=== PATIENT | female | born 1985 | race Hispanic/Latino ===

== ENCOUNTER 2018-01-21 22:07 | Inpatient (IN) | payer BC ==
[2018-01-21 22:42] VITALS: BMI 27.1
[2018-01-21 23:11] LABS: BASO % 0.3 % (0.0-2.0); EOS # 0.1 K/uL (0.0-0.7); EOS % 0.5 % (0.0-4.0); HEMOGLOBIN 11.1 g/dL (12.0-16.0); LYMPH # 2.8 K/uL (1.0-4.3); MEAN CELL VOLUME 89.7 fl (81.0-99.0); MEAN CORPUSCULAR HEMOGLOBIN 29.6 pg (27.0-31.0); MEAN PLATELET VOLUME 8.1 fl (7.2-11.7); MONO # 0.8 K/uL (0.0-0.8); NEUT # 9.6 K/uL (1.8-7.0); NEUT % 72.2 % (50.0-75.0); NRBC % 0.1 % (0.0-0.0); RBC 3.74 Mil/uL (3.80-5.20); RED CELL DISTRIBUTION WIDTH 13.9 % (11.5-14.5); WHITE BLOOD COUNT 13.3 K/uL (4.8-10.8)
[2018-01-22] MEDS ORDERED: Nalbuphine 20 mg/ml Inj (1 ml) IVP PRN (05:12)
--- NOTE | 2018-01-22 05:24 | OBADHP ---
Datetime: 01/22/2018 00:12 FHR - Baseline A Provider: 150 Membranes, Provider: Intact Vital Signs Provider: Reviewed; Within Normal Limits NICHD Variability Prov Fetus A: Moderate 6-25bpm NICHD Accel Fetus A IP Provider: 15X15 FHR Category Provider Fetus A: Category I Dilatation, Provider: FT Datetime: 01/21/2018 23:56 IP Chief Complaint Other: Oligohydramnios Admit Comment, IP Provider: CC: IOL for oligohydramnios HPI: 32 YO @ 40.5wks IUP presents to L_D for scheduled IOL for oligo. Pt states that she had an u/s done this morning and was told to come in for IOL for oligo. Endoring good FM, no LOF, VB and no ctx. MD: Jude cahrt rev'd PMH: denies SurgH: denies SH: denies ETOH, smoking and illict drug use FH: denies Allergies: NKDA Meds: PNV PE GEN: NAD Cardio: S1S2 no M/G/R Resp: clear breath sounds b/l Abdomen: BS+, NT gravid Neuro: AAO x 3 Ext: no edema, NT Cervx: FT FM: 150, catagory I, occasional ctx A/P: 32 YO @ 40.5wks IUP is admitted for IOL for oligohydramnios. HIV neg, RPR neg, GBS neg. -admit pt for vaginal del -start IOL protocol -cervidil -hep lock -blood work -continue FM Case discussed with Dr. Anais Santoyo, PGY I OB hospitalist note...patient seen with pgy1 and agree with her note. Cervidil inserted MAHNDO -disucussion about IOL, medical condition, labor, delivery, pain management, medications, risks/co mplications. Her questoins answered. Pelvic Type - PN: Adequate Extremities - PN: Normal Abdomen - PN: Normal Back - PN: Normal Breast - PN: Not Done Lungs - PN: Normal Heart - PN: Normal Thyroid - PN: Not Done Neurologic - PN: Normal General - PN: Normal Contraction Comments Provider: occ Pool Provider: Negative IP Hx Assessment: The History has been Reviewed and is Current IP Chief Complaint: Scheduled induction of labor Genitourinary Exam: Normal DTRs - PN: Not Done IP Adm Impression: Postterm, intrauterine ; No Active Labor; Intact Membranes IP Admit Plan: Admit to unit; Initiate labor protocol; Initiate labor induction protocol
[2018-01-22] MEDS ORDERED: Oxytocin 30 units/LR 500ML 30 U/500 ML BAG IV ONE ×2 (08:44→19:56)
[2018-01-22] MEDS: Lactated Ringer's 1,000 ML IV SCH ×4 (11:30→20:42)
--- NOTE | 2018-01-22 11:52 | OBPN ---
Datetime: 01/22/2018 11:46 IP Progress Impression: Normal progression of labor IP Progress Plan: Augmentation Membranes, Provider: Intact Contraction Comments Provider: Q2 FHR - Baseline A Provider: 130's IP Progress Note Comment: 32 G1 at 40 wks for induction of labor for oligohydramnios, s/p cervidil, now on pitocin Continue current care NICHD Accel Fetus A IP Provider: 15X15 FHR Category Provider Fetus A: Category I NICHD Variability Prov Fetus A: Moderate 6-25bpm Dilatation, Provider: 1 Effacement, Provider: 90 Station, Provider: -1 NICHD Decel Fetus A IP Provider: None Datetime: 01/22/2018 00:12 IP Procedures Other: Cervidil insertion IP Informed Consent Obtain: Vaginal Delivery Vital Signs Provider: Reviewed; Within Normal Limits Datetime: 01/21/2018 23:56 Pool Provider: Negative
[2018-01-22] MEDS ORDERED: Fentanyl/Bupivacaine HCl 250 ML EPI ONE (12:17)
[2018-01-23] MEDS: Lactated Ringer's 1,000 ML IV SCH ×3 (03:00→16:45)
[2018-01-23] MEDS ORDERED: ceFAZolin 1 GM in Sodium Chloride 0.9% 100 ML IVPB ONE (05:15)
[2018-01-23] MEDS ORDERED: ceFAZolin IV 1 gm in Dextrose 1 GM/50 ML BAG IVPB ONE (05:30)
[2018-01-23] MEDS ORDERED: Lidocaine 2% PF (10 ml) Amp ONE (05:39)
[2018-01-23] MEDS ORDERED: Morphine 1 mg/ml preservative-free Inj(Duramorph) ONE (05:40)
[2018-01-23] MEDS ORDERED: Bupivacaine HCl 0.5% PF (30 ml) Inj ONE (05:40)
[2018-01-23] MEDS ORDERED: Succinylcholine 200 mg/10 ml Inj IV ONE (06:06)
[2018-01-23] MEDS ORDERED: Propofol 10 mg/ml Inj (20 ML) ONE (06:06)
[2018-01-23] MEDS ORDERED: Midazolam 2 MG/2 ML VIAL ONE (07:18)
[2018-01-23] MEDS ORDERED: Cellulose Hemostat 2X3 Sheet ONE (07:23)
[2018-01-23] MEDS ORDERED: Oxycodone/Acetaminophen 5/325 mg Tab PO PRN ×2 (08:07)
[2018-01-23] MEDS ORDERED: DiphenhydrAMINE 50 mg/ml Inj IVP PRN (08:26)
--- NOTE | 2018-01-23 10:14 | OBPN ---
Datetime: 01/23/2018 08:17 IP Progress Impression: Arrest of dilatation/descent IP Informed Consent Obtain: Section Delivery; Risks, Benefits and Alternatives Discussed IP Procedures: Sterile Vag Exam IP Progress Plan: Deliver- Section Membranes, Provider: Ruptured Contraction Comments Provider: q2-5 FHR - Baseline A Provider: 160's IP Progress Note Comment: 32 yo G1 at 40 wks for induction of labor for oligohydramnios, w/ arrest o f desent Dx discussed w/ pt and her and 5 am Consents for ceasrean section and possible blood obtained. All questions answered. NICHD Variability Prov Fetus A: Moderate 6-25bpm Dilatation, Provider: 10 Effacement, Provider: 100 Station, Provider: 0 NICHD Decel Fetus A IP Provider: None
[2018-01-23 10:19] LABS: HEMOGLOBIN 8.9 g/dL (12.0-16.0); MEAN CELL VOLUME 90.7 fl (81.0-99.0); MEAN CORPUSCULAR HEMOGLOBIN 29.4 pg (27.0-31.0); MEAN CORPUSCULAR HGB CONC 32.5 g/dL (33.0-37.0); RBC 3.04 Mil/uL (3.80-5.20); RED CELL DISTRIBUTION WIDTH 14.2 % (11.5-14.5)
--- NOTE | 2018-01-23 11:09 | OBDS ---
DELIVERY PERSONNEL Delivery Doctor: Jeanette Denney MD Edge Runner: Veena Frost RN Anesthesiologist: Elaine Miller MD Resident: Dr Santoyo MATERNAL INFORMATION Delivery Anesthesia: Epidural Medications in Delivery: cefazolin 1 gram/ pit 30/500 pit Estimated Blood Loss (ml): 1000 Placenta Cultured: No Maternal Complications: Other Other Maternal Complications: Pt presented Tachy FHR and non reassuring strip with [id number] Descent . No maternal Fever noted and MD aware. Pt pushed from 240pm-5am. Provider Comments: Pre-op dx: 32 yo G1 at 41 wks for induction for oligohydramnios, w/ arrest of darlyn cent Post-op dx: Same Procedure: Primary low transverse section Surgeon: Олег Assistants: Drs. Wasserman and Deb Santoyo, PGY-1 Anesthesologist: Dr. Miller Anesthesia: Epidural Findings: Viable male delivered through thick meconium-stained fluid at 06:19am. Apgars 9 and 9. Wt 2950gms, 6#8. Nl appearing uterus tubes and ovaries. EBL: 1 liter LABOR SUMMARY EDC: 01/16/2018 00:00 No. Babies in Womb: 1 Attempted: No Labor Anesthesia: Epidural LABOR INFORMATION Reason for Induction: Oligohydramnios Onset of Labor: 01/22/2018 18:30 Complete Dilatation: 01/23/2018 00:30 Cervical Ripening Agents: Cervidil Oxytocin: Induction Group B Beta Strep: Negative Antibiotics # of Doses: 1 Antibiotics Time of Last Dose: Ancef 1 gm @0555 Steroids Given: None Reason Steroids Not Administered: Not Applicable Other Reason Not Administered: n/a MEMBRANES Membranes Rupture Method: Artificial Rupture of Membranes: 01/23/2018 06:19 Length of Rupture (hrs): 0.00 Amniotic Fluid Color: Heavy Meconium Amniotic Fluid Amount: Small Amniotic Fluid Odor: Normal STAGES OF LABOR Stage 1 hrs: 6 Stage 1 min: 0 Stage 2 hrs: 5 Stage 2 min: 49 Stage 3 hrs: 0 Stage 3 min: 1 Total Time in Labor hrs: 11 Total Time in Labor min: 50 CSECTION DELIVERY Primary Indication: Arrest of Descent CSection Urgency: Elective CSection Incidence: Primary Labor: Labor Elective: Elective CSection Incision: Lower Uterine Transverse BABY A INFORMATION Delivery Date/Time: 01/23/2018 06:19 Method of Delivery: Born in Route : No : N/A Forceps: N/A Vacuum Extraction: N/A Shoulder Dystocia : No ASSISTED DELIVERY BABY A Station Vacuum/Forcep Apply: SHOULDER DYSTOCIA BABY A Infant Delivery Date/Time: 01/23/2018 06:19 PRESENTATION/POSITION BABY A Presentation: Cephalic Cephalic Presentation: Vertex Breech Presentation: N/A (Annotations: Data stored by [facility] on behalf of user) PLACENTA INFORMATION BABY A Placenta Delivery Time : 01/23/2018 06:20 Placenta Method of Delivery: Expressed Placenta Status: Delivered SCORES BABY A Heart Rate 1 min: >100 bpm Resp Effort 1 min: Good Cry Reflex Irritability 1 min: Cough or Sneeze or Pulls Away Muscle Tone 1 min: Active Motion Color 1 min: Body Parnell, Extremities Blue Resuscitation Effort 1 min: N/A SCORE 1 MIN: 9 Heart Rate 5 min: >100 bpm Resp Effort 5 min: Good Cry Reflex Irritability 5 min: Cough or Sneeze or Pulls Away Muscle Tone 5 min: Active Motion Color 5 min: Body Parnell, Extremities Blue Resuscitation Effort 5 min: N/A SCORE 5 MIN: 9 INFORMATION BABY A Gestational Age at Delivery: 40.6 Gestational Status: Term Infant Outcome : Liveborn Condition : Stable Sex: Male IDENTIFICATION/MEDS BABY A ID Band Number: [id number] ID Band Location: Left Leg; Left Arm Vitamin K Given : Aquamephyton 0.5 mg IM Erythromycin Given: Given Both Eyes WEIGHT/LENGTH BABY A Birthweight (gms): 2950 Infant Weight (lb): 6 Weight (oz): 8 Infant Length Inches: 19.50 Length cms: 49.5 CORD INFORMATION BABY A No. Cord Vessels: 3 Nuchal Cord : Around Neck x1, Loose Nuchal Cord Other: n/a True Knot: n/a Cord pH Baby Arterial: n/a Cord pH Baby Venous: n/a Cord Blood Taken: Yes Banking/Donate Info: n/a Infant Suction: Mouth; Nose ASSESSMENT BABY A Complications: Extended Tachycardia; Multiple Late Decels; Multiple Variable Decels; Ol igohydramnios Physical Findings at Delivery: Within Normal Limits Infant Respirations: Appears Normal Paradichlorobenzene Machine Operator/ALS Called : No Infant Care By: DR Morse/Annika/Magalie Transferred To: Remains with Mother
[2018-01-23 14:27] LABS: HEMOGLOBIN 7.9 g/dL (12.0-16.0); MEAN CELL VOLUME 90.5 fl (81.0-99.0); MEAN CORPUSCULAR HEMOGLOBIN 29.4 pg (27.0-31.0); MEAN CORPUSCULAR HGB CONC 32.4 g/dL (33.0-37.0); RBC 2.68 Mil/uL (3.80-5.20); RED CELL DISTRIBUTION WIDTH 14.3 % (11.5-14.5)
--- NOTE | 2018-01-23 14:42 | OP ---
PROCEDURE DATE: 01/23/2018 PREOPERATIVE DIAGNOSES: This is a 32-year-old G1 at 41 weeks for induction for oligohydramnios with arrest of descent. POSTOPERATIVE DIAGNOSES: This is a 32-year-old G1 at 41 weeks for induction for oligohydramnios with arrest of descent. PROCEDURE: Primary low transverse section. SURGEON: Alcon Denney MD ASSISTANTS: Drs. Kamaljit Wasserman and Deb Santoyo, PGY-1 TYPE OF ANESTHESIA: Epidural. ANESTHESIA ADMINISTERED BY: Dr. Miller. FINDINGS: Viable male delivered through thick meconium-stained fluid at 6:19 a.m. Apgars 9 and 9 at 1 and 5 minutes respectively. The weight is 2950 grams or 6 pounds 8 ounces. Normal-appearing uterus, tubes and ovaries. Baby was SGA. Urine was clear prior to the case and was blood-tinged by the end of the case. ESTIMATED BLOOD LOSS: 1 liter. DESCRIPTION OF PROCEDURE: The patient was taken to the operating room where the epidural was bolused. She was prepped and draped in the normal sterile fashion in dorsal supine position with a leftward tilt. A Bailey was placed in the bladder. A time-out was done. A Pfannenstiel skin incision was made with a scalpel and carried through to the underlying layer of fascia with the Bovie. The fascia was incised in the midline and the incision was extended laterally with the Henry scissors. The inferior aspect of the fascial incision was then grasped with the Maninder clamps, elevated, and the underlying rectus muscles were dissected off bluntly and with the Bovie. Attention was then turned to the superior aspect of this incision, which in a similar fashion, was grasped, tented up with the Maninder clamps, and the rectus muscles dissected off bluntly. The rectus muscles were then in the midline, and the peritoneum was identified, tented up, and entered sharply with the Metzenbaum scissors. The peritoneal incision was then extended superiorly and inferiorly with good visualization of the bladder. The bladder blade was then inserted and the vesicouterine peritoneum was identified, grasped with the pickups, and entered sharply with the Metzenbaum scissors. This incision was then extended laterally and the bladder flap was created digitally. The bladder blade was then reinserted and the lower uterine segment was incised in transverse fashion with the scalpel. The uterine incision was then extended in a cephalocaudal direction digitally. The bladder blade was removed. The right rectus muscle was incised with bandage scissors to make room for the delivery. The infant's head delivered atraumatically. The nose and mouth were suctioned with the bulb suction. The cord was clamped and cut. The infant was handed off to the awaiting scene and lighting design lecturer. Cord gases were collected. Cord blood was collected. The placenta was then delivered as the uterus was massaged. The uterus was then exteriorized and cleared of all clots and debris. The uterine incision was then repaired with 0 Vicryl in a running locked fashion. The inferior portion of the incision was extremely friable and was oozing. Three moistened laparotomy sponges were placed over the incision and it was decided to call Dr. Wasserman for assistance. Dr. Wasserman arrived about a half hour later. The sponges did not appear to be soaking with blood. There was also a large hematoma that occupied a large portion of the lower uterine segment. The hematoma remained stable and did not appear to be expanding. When Dr. Wasserman arrived, the sponges were removed from the area and the friable lower aspect of the incision was bleeding. The thicker portion of the inferior aspect of the uterine incision was now clearly visible and so this was incorporated into the incision with 0 Vicryl in a running locked fashion. The abdomen was well irrigated. The uterus was placed back in the abdomen. The gutters were cleared of all clots. The superior aspect of the right side of the peritoneum was sutured with 1-chromic for hemostasis. The rectus muscle was then re-approximated with interrupted stitches of 1 chromic. The fascia was then reapproximated with 0 Vicryl in a running fashion. The subcutaneous fat was well irrigated. The subcutaneous fat was closed with interrupted stitches of 2-0 plain gut. The skin was then closed in subcuticular fashion using 4-0 Monocryl. The patient tolerated the procedure well. Sponge, lap and needle counts were correct. The patient had received 1 g of Ancef prior to the procedure. The patient was taken to the recovery room in stable condition. Alcon Denney MD [facility] # [id number] DARRON
[2018-01-23 20:46] LABS: BASO % 0.1 % (0.0-2.0); EOS % 0.1 % (0.0-4.0); HEMOGLOBIN 6.9 g/dL (12.0-16.0); LYMPH # 1.6 K/uL (1.0-4.3); LYMPH % 7.3 % (20.0-40.0); MEAN CELL VOLUME 90.9 fl (81.0-99.0); MEAN CORPUSCULAR HEMOGLOBIN 29.3 pg (27.0-31.0); MEAN CORPUSCULAR HGB CONC 32.2 g/dL (33.0-37.0); MEAN PLATELET VOLUME 7.7 fl (7.2-11.7); MONO # 1.1 K/uL (0.0-0.8); MONO % 4.7 % (0.0-10.0); NEUT # 19.7 K/uL (1.8-7.0); NEUT % 87.8 % (50.0-75.0); PLATELET COUNT 138 K/uL (130-400); RBC 2.36 Mil/uL (3.80-5.20); RED CELL DISTRIBUTION WIDTH 14.4 % (11.5-14.5); WHITE BLOOD COUNT 22.4 K/uL (4.8-10.8)
[2018-01-23 21:39] LABS: BANDS 1 % (0-2); EOSINOPHIL 1 % (0-7); LYMPHOCYTE 8 % (20-50); MONOCYTE 2 % (0-10); NEUTROPHIL 88 % (42-75); TOTAL CELLS COUNTED 100
[2018-01-23 21:40] LABS: HYPOCHROMIC MARKED; ROULEAUX FORMATION SLIGHT
[2018-01-23 21:51] LABS: PLATELET ESTIMATE NORMAL (NORMAL)
[2018-01-23] MEDS: Simethicone 80 mg Chewtab PO SCH (21:57)
--- NOTE | 2018-01-24 01:21 | OBPPN ---
Datetime: 01/24/2018 01:01 PP Pain Prov: Within normal limits PP Nausea Prov: Denies PP Breasts Prov: Normal PP Heart Prov: Normal PP Lungs Prov: Normal PP Abdomen/Uterus Prov: Normal PP Lochia Prov: Normal PP Vulva/Perineum Prov: Normal PP CVA Tenderness Prov: Normal PP Extremities Prov: Normal PP Comments Phys Exam Prov: Uterus firm, below umbilicus Abdomen soft, nondistended, appropriate diffuse tenderness PP Plan Prov: Continue present management PP Impression Other Prov: acute anemia PP Progress Note Prov: Patient with persistent tachycardia. Latest CBC drawn reported hematocrit of 21. Discussed with patient the need for transfusion. All patient questions answered and patient agree s with plan. 2 units packed red blood cells ordered. IP PP Procedures: Transfusion Vital Signs Provider PP: Reviewed Vital Signs Provider Details PP: Tachycardia
[2018-01-24] MEDS: Simethicone 80 mg Chewtab PO SCH ×3 (10:00→22:07)
[2018-01-24] MEDS ORDERED: DiphenhydrAMINE 50 mg/ml Inj IVP PRN (14:56)
[2018-01-24] MEDS ORDERED: Oxycodone/Acetaminophen 5/325 mg Tab PO PRN ×2 (14:56)
[2018-01-24] MEDS: Prenatal Multivit/Folic Acid/Iron Tab PO SCH (16:38)
[2018-01-24 18:01] LABS: BASO % 0.2 % (0.0-2.0); EOS # 0.1 K/uL (0.0-0.7); EOS % 0.4 % (0.0-4.0); HEMOGLOBIN 9.1 g/dL (12.0-16.0); LYMPH # 1.9 K/uL (1.0-4.3); LYMPH % 8.9 % (20.0-40.0); MEAN CELL VOLUME 88.6 fl (81.0-99.0); MEAN CORPUSCULAR HGB CONC 32.7 g/dL (33.0-37.0); MEAN PLATELET VOLUME 7.8 fl (7.2-11.7); MONO % 4.6 % (0.0-10.0); NEUT # 18.1 K/uL (1.8-7.0); NEUT % 85.9 % (50.0-75.0); RBC 3.13 Mil/uL (3.80-5.20); RED CELL DISTRIBUTION WIDTH 15.6 % (11.5-14.5); WHITE BLOOD COUNT 21.1 K/uL (4.8-10.8)
--- NOTE | 2018-01-24 18:57 | OBPPN ---
Datetime: 01/24/2018 18:43 PP Pain Prov: Within normal limits PP Nausea Prov: Denies PP Flatus Prov: Yes PP Breasts Prov: Normal PP Heart Prov: Normal PP Lungs Prov: Normal PP Abdomen/Uterus Prov: Normal PP Lochia Prov: Normal PP Vulva/Perineum Prov: Normal PP CVA Tenderness Prov: Normal PP Extremities Prov: Normal PP Comments Phys Exam Prov: Incisoin clean/dry/ Intact Fundus firm under umbilicus PP Impression Prov: Normal progression PP Plan Prov: Continue present management PP Progress Note Prov: Patient denies CP, no SOB, no N/V, tolerating PO diet, ambulating/voiding wel l, mild lochia, abdominal pain tolerable with meds, +flatus A/P POD #2 1. Reg diet 2. Percocet/Motrin prn pain 3. Encourage ambulation/ IP PP Procedures: None Vital Signs Provider PP: Reviewed; Within Normal Limits
[2018-01-25] MEDS: Simethicone 80 mg Chewtab PO SCH ×4 (05:49→22:05)
--- NOTE | 2018-01-25 08:06 | OBPPN ---
Datetime: 01/25/2018 07:57 PP Pain Prov: Within normal limits PP Nausea Prov: Denies PP Flatus Prov: Yes PP BM Prov: No PP Abdomen/Uterus Prov: Normal PP Lochia Prov: Normal PP Vulva/Perineum Prov: Normal PP Extremities Prov: Normal PP C/S Incision Prov: Normal PP Progress Prov: Normal PP Comments Phys Exam Prov: Incison intact w/ steri strips PP Impression Prov: Normal progression PP Progress Note Prov: POD 2 s/p primary c/s for arrest of descent, breast feeding Pt reports that she is leaking urine when she has to urinate, denies leaking w/ walking Discussed Kegel exercise Will observe for now Vital Signs Provider PP: Reviewed
[2018-01-25] MEDS: Prenatal Multivit/Folic Acid/Iron Tab PO SCH (09:47)
[2018-01-25] MEDS ORDERED: Lansinoh for Breast Feeding Mothers TP ONE (22:11)
[2018-01-26] MEDS: Simethicone 80 mg Chewtab PO SCH ×4 (05:42→21:18)
[2018-01-26] MEDS: Prenatal Multivit/Folic Acid/Iron Tab PO SCH (09:48)
--- NOTE | 2018-01-26 10:28 | OBPPN ---
Datetime: 01/26/2018 10:24 PP Pain Prov: Within normal limits PP Nausea Prov: Denies PP Flatus Prov: Yes PP Breasts Prov: Normal PP Heart Prov: Normal PP Lungs Prov: Normal PP Abdomen/Uterus Prov: Normal PP Lochia Prov: Normal PP Vulva/Perineum Prov: Normal PP CVA Tenderness Prov: Normal PP Extremities Prov: Normal PP Comments Phys Exam Prov: Fundus firm under umbilicus Incision clean/dry/intact PP Impression Prov: Normal progression PP Plan Prov: Continue present management PP Progress Note Prov: Patient denies CP, no SOB, no N/V, tolerating PO diet, ambulating/voiding wel l, mild lochia, abdominal pain tolerable with meds, +flatus, +BM A/P POD #3 1. Reg diet 2. Percocet/Motrin prn pain 3. Encourage ambulation/ IP PP Procedures: None Vital Signs Provider PP: Reviewed; Within Normal Limits
[2018-01-26] MEDS ORDERED: Lansinoh for Breast Feeding Mothers TP ONE (12:47)
[2018-01-27] MEDS: Simethicone 80 mg Chewtab PO SCH ×3 (06:53→17:03)
[2018-01-27] MEDS: Prenatal Multivit/Folic Acid/Iron Tab PO SCH (08:57)
--- NOTE | 2018-01-27 10:31 | OBDCSUM ---
Datetime: 01/27/2018 10:27 Discharged to, Provider: Home Follow up at, Provider: anastasia Disch Instr Activity: May Shower Disch Instr Diet: Regular Discharge Instructions, Provider: Specific instructions as noted Discharge Diagnosis, Provider: Term Delivered Discharge Time: 01/27/2018 12:30 Follow up in weeks, Provider: 10days Discharge Instruct Comment, Prov: postop _pp Disch Activity Restrictions: No exercising; No lifting; No driving Discharge Comment, Provider: consult cool gel for breast rx feso4 motrin, senokot s, pnv f/u 10days w/ ob for incision check. Contraception after Delivery: Undecided
--- NOTE | 2018-01-27 10:31 | OBPPN ---
Datetime: 01/27/2018 10:23 PP Nausea Prov: Present PP Flatus Prov: Yes PP BM Prov: Yes PP Breasts Prov: Normal PP Heart Prov: Normal PP Lungs Prov: Normal PP Abdomen/Uterus Prov: Normal PP Lochia Prov: Normal PP Vulva/Perineum Prov: Normal PP Extremities Prov: Normal PP C/S Incision Prov: Normal PP Progress Prov: Normal PP Impression Prov: Normal progression PP Plan Prov: consult PP Progress Note Prov: s: tolerating reg diet. c/o pain along breast nipple i: pod4 doing well p: consult cool gel for breast rx feso4 motrin, senokot s, pnv f/u 10days w/ ob for incision check. IP PP Procedures: Transfusion Vital Signs Provider PP: Within Normal Limits
[2018-01-28 01:17] VITALS: BP 135/77; PULSE 60; RESP 18; TEMP 97.1; O2SAT 100
== END 2018-01-27 18:30 | disposition home or self-care (01) | DRG 765 ==
LOC: H.EROB2 22:07 → H.L&D 22:49 → H.OB/GYN 01-23 16:55
PROVIDERS: ADMIT Obstetrics & Gynecology; ATTEND Obstetrics & Gynecology
PROC: 4A1HXCZ Monitoring of Products of Conception, Cardiac Rate, External Approach (ICD-10-PCS; 2018-01-21)
PROC: 10D00Z1 Extraction of Products of Conception, Low, Open Approach (ICD-10-PCS; principal; 2018-01-23)
DX: O41.03X0 Oligohydramnios, third trimester, not applicable or unspecified (principal); O36.5930 Maternal care for other known or suspected poor fetal growth, third trimester, not applicable or unspecified; Z37.0 Single live birth; O69.81X0 Labor and delivery complicated by cord around neck, without compression, not applicable or unspecified; Z3A.40 40 weeks gestation of pregnancy; O77.0 Labor and delivery complicated by meconium in amniotic fluid; O62.1 Secondary uterine inertia